=== PATIENT | male | born 1970 | race American Indian/Alaskan Native ===

== ENCOUNTER 2024-10-24 23:32 | Emergency (ER) | payer BC | END 2024-10-25 01:38 | disposition home or self-care (01) | LOC: DL.ED 23:32 | DX: J02.9 Acute pharyngitis, unspecified (principal); I10 Essential (primary) hypertension; Z86.16 Personal history of COVID-19; Z90.49 Acquired absence of other specified parts of digestive tract | CPT/HCPCS: 87081; 87430; 99282; 99283 ==